=== PATIENT | male | born 1985 | race American Indian/Alaskan Native ===

== ENCOUNTER → 2018-08-10 | Outpatient (CLI) | payer OTHER ==
--- NOTE | 2018-08-10 16:00 | CONS ---
CONSULTATION REASON FOR CONSULTATION: Sleep apnea. This is a very pleasant 33-year-old male patient who owns a hair salon locally in [place]. The patient is coming in for increased tiredness and sleepiness during the day. He lives with a girlfriend. He has been told that he snores loudly. On several occasions he has noted himself waking up in the middle of the night. He occasionally wakes up gasping for air. He tries to go to bed around 11:30 p.m. and wakes up at 7:45 a.m. in the morning. On several occasions he has found himself very tired and fatigued during the day. He takes a nap whenever he has a chance to do so, and these naps sometimes extend up to an hour. No sleep paralysis. No hallucinations. No cataplexy. No family history of obstructive sleep apnea. No substance abuse. No recent weight gain or weight loss. Thurmond Score is 6. PAST MEDICAL HISTORY: Negative. SURGICAL HISTORY: Surgical history includes EGD. DRUG ALLERGIES: PENICILLIN. OUTPATIENT MEDICATIONS: Prilosec 40 mg p.o. daily. SOCIAL HISTORY: Nonsmoker. History of history of alcoholism. No history of IV drugs. FAMILY HISTORY: Positive for chronic renal failure in the father; otherwise negative for any sleep apnea. REVIEW OF SYSTEMS: Twelve-point review of systems was done. Positive findings were all mentioned above in the history of present illness. No substance abuse. No headaches. No altered mentation. No falls. No nausea, vomiting, diarrhea or abdominal pain. No dysuria, frequency or urgency. No chest pain. No history of any motor vehicle accident because of feeling drowsy or sleepy. No history of anxiety or depression. No palpitations. No claustrophobia. PHYSICAL EXAMINATION: BP is 106/70, pulse 76, respirations 16, temperature 98.6, saturation 98% on room air. Weight is 214. Height is 6 feet 1 inch. Neck size is 15-1/2 inches. GENERAL APPEARANCE: Calm and comfortable. No acute distress. Head is atraumatic, normocephalic. NECK: Supple. There is no JVD. No goiter or neck masses. The patient has an overbite. LUNGS: Clear to auscultation. HEART: Heart sounds are regular rate and rhythm. Normal S1, S2. No S3, S4. No murmurs. ABDOMEN: Soft. No organomegaly. No direct tenderness, rebound tenderness or guarding. EXTREMITIES: No edema. No cyanosis or clubbing. NEUROLOGIC: The patient is alert and oriented x3. There is no focal neurological deficit. Psychiatrically there is no anxiety or depression. IMPRESSION: 1. Hypersomnia with sleep fragmentation, loud snoring or witnessed apneas. Rule out underlying obstructive sleep apnea. The patient will need further investigation. 2. Loud snoring. 3. Sleep fragmentation secondary to apneas. 4. Overbite with a Mallampati class 2 to 3. PLAN: 1. Perform a screening polysomnogram to investigate this patient for any form of sleep breathing disorder. 2. I asked the patient to sleep on his side, knowing that most of the apneas are occurring when he is lying down supine. 3. Implement good sleep hygiene measures. 4. Will make further recommendations based on the results of the sleep study. MMBRIANL / IJN: [id number] /
== END ==
LOC: SLEEP 13:12
PROVIDERS: ATTEND Internal Medicine Critical Care Medicine
DX: Z53.9 Procedure and treatment not carried out, unspecified reason (principal)

== ENCOUNTER 2020-04-09 10:15 | Emergency (ER) | payer OTHER ==
[2020-04-09 10:25] VITALS: BP 125/86; PULSE 72; RESP 18; TEMP 97.7
--- NOTE | 2020-04-09 10:43 | ED ---
General Adult HPI - General Chief complaint: Head Injury Stated complaint: head injury Time Seen by Provider: 04/09/20 10:26 Source: patient, RN notes reviewed Mode of arrival: ambulatory Limitations: no limitations - History of Present Illness Initial comments: 34-year-old male without any significant past medical history presents to the emergency room for a chief complaint of laceration. Patient reports that he was fixing a toilet and went to stand up. He hit his head on the corner of an air conditioner. Patient reports that he must of cut himself and it started bleeding. States it was bleeding a good amount so he thought he might need stitches. He did not lose consciousness. He does not have a headache or neck pain. Patient has no other complaints at this time including shortness of breath, chest pain, abdominal pain, nausea or vomiting, headache, or visual changes. - Related Data Home Medications Medication Instructions Recorded Confirmed No Known Home Medications 02/19/14 06/03/14 Allergies Allergy/AdvReac Type Severity Reaction Status Date / Time Penicillins Allergy Unknown Verified 04/09/20 10:25 Review of Systems ROS Statement: Those systems with pertinent positive or pertinent negative responses have been documented in the HPI. ROS Other: All systems not noted in ROS Statement are negative. Past Medical History Past Medical History: No Reported History History of Any Multi-Drug Resistant Organisms: None Reported Past Surgical History: No Surgical Hx Reported Past Psychological History: No Psychological Hx Reported Smoking Status: Never smoker Past Alcohol Use History: None Reported Past Drug Use History: None Reported General Exam Limitations: no limitations General appearance: alert, in no apparent distress Head exam: Absent: atraumatic (Patient has a simple 1 cm laceration noted to the left parietal scalp.) Eye exam: Present: normal appearance, PERRL, EOMI. Absent: scleral icterus, conjunctival injection, periorbital swelling ENT exam: Present: normal exam, mucous membranes moist Neck exam: Present: normal inspection. Absent: tenderness, meningismus, lymphadenopathy Respiratory exam: Present: normal lung sounds bilaterally. Absent: respiratory distress, wheezes, rales, rhonchi, stridor Cardiovascular Exam: Present: regular rate, normal rhythm, normal heart sounds. Absent: systolic murmur, diastolic murmur, rubs, gallop, clicks Neurological exam: Present: alert, oriented X3, normal gait, other (GCS 15) Course Vital Signs 04/09/20 10:23 Temperature 97.7 F Pulse Rate 72 Respiratory 18 Rate Blood Pressure 125/86 O2 Sat by Pulse 98 Oximetry Procedures - Laceration Laceration #1 Consent Obtained: verbal consent Indication: laceration Site: scalp Size (cm): 1 Description: linear Depth: simple, single layer Pre-repair: wound explored, irrigated extensively (saline pressure irrigation) Size of Sutures: other (heena, 1) Patient Tolerated Procedure: well, no complications Medical Decision Making - Medical Decision Making Patient presents for laceration to the scalp. This was irrigated with saline pressure irrigation and closed with one staple. Tetanus is up-to-date as of 3 years ago. Patient does not have a high mechanism of injury to his head, does not have headache vomiting or loss of consciousness. At this time CT was not necessary as there is not high clinical suspicion of any severe traumatic injur y. I did discuss symptoms that would require patient to return including severe headache, vomiting, confusion, visual changes, or any other concerning symptoms. Otherwise he will return in 7-10 days for staple removal. Disposition Clinical Impression: Laceration Disposition: HOME SELF-CARE Condition: Good Instructions (If sedation given, give patient instructions): Laceration (ED), Staple Care (ED) Additional Instructions: Please keep the area clean. Monitor for signs of infection. Return if these or any other complications occur. Otherwise return in 7-10 days for staple removal. Is patient prescribed a controlled substance at d/c from ED?: No Referrals: Dhiraj uGnter MD [Primary Care Provider] - 1-2 days Time of Disposition: 10:43
== END 2020-04-09 11:00 | disposition home or self-care (01) ==
LOC: EC 10:15
DX: S01.01XA Laceration without foreign body of scalp, initial encounter (principal); Z88.0 Allergy status to penicillin; W22.09XA Striking against other stationary object, initial encounter; Y93.89 Activity, other specified; Y92.89 Other specified places as the place of occurrence of the external cause
CPT/HCPCS: 12001; 99282

== ENCOUNTER → 2020-06-14 | Outpatient (CLI) | payer OTHER ==
--- NOTE | 2020-06-14 14:10 | XR ---
EXAMINATION TYPE: XR knee limited RT DATE OF EXAM: 06/14/2020 COMPARISON: None HISTORY: Fall from tree stand one week prior TECHNIQUE: 2 view right knee FINDINGS: No acute fracture or dislocation is evident. Joint spaces preserved. No joint effusion is e vident. IMPRESSION: 1. Normal 2 view right knee
--- NOTE | 2020-06-14 14:12 | XR ---
EXAMINATION TYPE: XR tibia fibula RT DATE OF EXAM: 06/14/2020 COMPARISON: Pain right leg HISTORY: Pain fall from tree stand TECHNIQUE: 2 view right tibia and fibula FINDINGS: No acute fracture or dislocation is evident. Joint spaces appear preserved. Soft tissues ar e normal. IMPRESSION: 1. Normal 2 view right tibia and fibula
== END | disposition home or self-care (01) ==
LOC: RADXRMAIN 13:48
PROVIDERS: ATTEND Nurse Practitioner Family
DX: M79.604 Pain in right leg (principal)

== ENCOUNTER → 2021-03-05 | Outpatient (CLI) | payer BC ==
--- NOTE | 2021-03-06 05:07 | MR ---
EXAMINATION TYPE: MR knee RT wo con DATE OF EXAM: 03/05/2021 COMPARISON: None HISTORY: Rt knee pain Multiplanar multiecho imaging of the right knee with no contrast. The anterior and posterior cruciate ligaments are intact. There is small horizontal tear of the poste rior horn medial meniscus extending almost to the articular surface on the inferior aspect. The later al meniscus is intact. There is small knee joint effusion. The patella tendon is intact. There is mil d subcutaneous edema over the lateral knee joint. There is some mild increased signal in the lateral collateral ligament. I see no bony destructive process. There is no evidence of a fracture. Joint spaces are fairly normal . IMPRESSION: Small horizontal tear posterior horn medial meniscus. Small knee joint effusion. There is probably pa rtial tear of the lateral collateral ligament. No fracture seen.
== END | disposition home or self-care (01) ==
LOC: RADMRIMAIN 08:35
PROVIDERS: ATTEND Internal Medicine Geriatric Medicine
DX: M23.321 Other meniscus derangements, posterior horn of medial meniscus, right knee (principal)

== ENCOUNTER 2021-06-14 19:28 | Emergency (ER) | payer BC ==
[2021-06-14 19:55] VITALS: BP 120/79; PULSE 88; RESP 22; TEMP 99
--- NOTE | 2021-06-14 21:34 | ED ---
Headache HPI - General Chief Complaint: Headache Stated Complaint: Headache, Nausea Time Seen by Provider: 06/14/21 20:59 Mode of arrival: ambulatory Limitations: no limitations - History of Present Illness Initial Comments: 's patient is a 35-year-old man who presents to be evaluated for right parietal headache. The patient states that he has been getting headaches like this though not as severe as today, going back for a number of months. He states that he has been seeing a chiropractor when they come on and that usually after she is a chiropractor the headaches resolve for a month or so. The patient states that he saw a chiropractor yesterday but this headache has continued. He gets sharp intermittent pains the right parietal that ago down towards his ear. The patient has some photophobia. Declines analgesic at initial history and physical MD Complaint: headache -: month(s) Location: right, other Severity: severe Quality: sharp, intermittent, worst headache of life Consistency: intermittent Improves With: nothing Worsens With: none Context: occurred at rest Associated Symptoms: photophobia - Related Data Home Medications Medication Instructions Recorded Confirmed No Known Home Medications 02/19/14 06/14/21 Allergies Allergy/AdvReac Type Severity Reaction Status Date / Time Penicillins Allergy Unknown Verified 06/14/21 22:05 Review of Systems ROS Statement: Those systems with pertinent positive or pertinent negative responses have been documented in the HPI. ROS Other: All systems not noted in ROS Statement are negative. Constitutional: Denies: fever, chills, weakness Eyes: Denies: vision change ENT: Denies: ear pain, hearing loss Respiratory: Denies: cough, dyspnea Cardiovascular: Denies: chest pain Gastrointestinal: Reports: nausea. Denies: abdominal pain, vomiting Musculoskeletal: Denies: back pain Skin: Denies: rash Neurological: Reports: headache. Denies: weakness, numbness, paresthesias Past Medical History Past Medical History: No Reported History History of Any Multi-Drug Resistant Organisms: None Reported Past Surgical History: No Surgical Hx Reported Past Psychological History: No Psychological Hx Reported Smoking Status: Never smoker Past Alcohol Use History: None Reported Past Drug Use History: None Reported General Exam Limitations: no limitations Course Vital Signs 06/14/21 19:50 Temperature 99 F Pulse Rate 88 Respiratory 22 Rate Blood Pressure 120/79 O2 Sat by Pulse 99 Oximetry Disposition Clinical Impression: Headache Disposition: HOME SELF-CARE Condition: Good Instructions (If sedation given, give patient instructions): Acute Headache (ED) Is patient prescribed a controlled substance at d/c from ED?: No Referrals: Dhiraj Gunter MD [Primary Care Provider] - 1-2 days
--- NOTE | 2021-06-14 22:26 | CT ---
EXAMINATION TYPE: CT brain wo con DATE OF EXAM: 06/14/2021 COMPARISON: None HISTORY: Headache CT DLP: mGycm Automated exposure control for dose reduction was used. Images of the brain obtained without contrast. Ventricles and sulci appear normal. There is no mass effect nor midline shift. There is no sign of in tracranial hemorrhage. Calvarium is intact. There is normal aeration of the mastoid sinuses. IMPRESSION: Negative unenhanced head CT scan.
== END 2021-06-14 23:46 | disposition home or self-care (01) ==
LOC: EC 19:28
DX: R51.9 Headache, unspecified (principal); Z88.0 Allergy status to penicillin
CPT/HCPCS: 70450; 99284